=== PATIENT | male | born 1980 | race Caucasian/White ===

== ENCOUNTER 2023-01-18 21:25 | Emergency (ER) | payer MEDICAID, OTHER ==
[~2023-01-18] VITALS: Ht 177.8 cm; Wt 79.2 kg
[2023-01-18 21:25] VITALS: BP 131/76; PULSE 91; RESP 18; TEMP 98.3
[2023-01-18] MEDS ORDERED: IBUP-1456 PO (23:38)
[2023-01-18] MEDS ORDERED: CARB6.5S44 OT (23:38)
[2023-01-18] MEDS ORDERED: AMOX875T4 PO (23:38)
[2023-01-18] MEDS ORDERED: KETOROLAC TROMETH 60MG/2ML VIAL IM ONE (23:45)
[2023-01-18 23:53] VITALS: O2SAT 96
== END 2023-01-19 00:52 | disposition home or self-care (01) ==
LOC: ER 21:25
DX: H61.22 Impacted cerumen, left ear (principal); Z79.1 Long term (current) use of non-steroidal anti-inflammatories (NSAID); Z79.2 Long term (current) use of antibiotics; Z79.899 Other long term (current) drug therapy
CPT/HCPCS: J1885

== ENCOUNTER 2025-02-23 20:03 | Emergency (ER) | payer MEDICAID ==
[~2025-02-23] VITALS: Ht 177.8 cm; Wt 77.2 kg
[~2025-02-23 20:03] MED LIST: AMOX875T4 PO; CARB6.5S44 OT; IBUP-1456 PO
[2025-02-23 20:40] LABS: Hematocrit 47.9 % (41.0-53.0); Hemoglobin 16.4 g/dL (13.5-17.5); Mean Corpuscular Hemoglobin 31.3 pg (28.0-32.0); Mean Corpuscular Volume 91.5 fL (80.0-100.0); Nucleated Red Blood Cells % 0.1 %
--- NOTE | 2025-02-23 20:46 | ED.PDOC ---
GI ASSESSMENT HPI Comments 44-year-old male came to ER for nausea and vomiting. Patient is prediabetic. Admits that he was drinking alcohol heavily last night, started having bouts of nausea and vomiting. Today, he still feels very dizzy, nauseated, blurred vision, and had a couple of near syncopal attacks. Patient tried hydrating himself with Gatorade but symptoms persisted Chief Complaint: Nausea/Vomiting Time Seen by MD: 20:46 Primary Care Provider: UNKNOWN Reviewed Notes: Nurses Notes Allergies: Coded Allergies: NO KNOWN ALLERGIES (Unverified , 08/22/11) Home Meds Active Scripts Ondansetron Odt 4MG Tab (ZOFRAN PO) 4 Mg Tb, 4 MG PO Q6HPRN PRN for 3 Days, #12 TAB ODT TAB-DISSOLVE IN MOUTH, THEN SWALLOW Prov:SHAR VARGAS MD 02/23/25 Carbamide Peroxide (Debrox) 6.5 % Betty, 5 DROP OT BID for 4 Days, #1 BOTTLE 0 Re fills Prov:LOKESH WEINER 01/18/23 Ibuprofen (Ibuprofen) 800 Mg Tab, 1 TAB PO TID PRN, #30 TAB 0 Refills Prov:LOKESH WEINER 01/18/23 Amoxicillin & Pot Clavulanate (Amoxicillin/Potassium Cla) 875 Mg Tab, 1 TAB PO BID for 7 Days, #14 TAB 0 Refills Prov:LOKESH WEINER 01/18/23 Information Source: Patient Mode of Arrival: Ambulatory Past Medical History PAST MEDICAL HISTORY: Denies Surgical History: Denies all surgeries Family History Family History: Unknown Social History Smoker: Non-Smoker Alcohol: Occasionally Drugs: Denies Drug Use Lives In: Home Constitutional: denies: chills, diaphoresis, fatigue, fever, malaise, sweats, weakness, others EENTM: reports: blurred vision; denies: double vision, ear bleeding, ear discharge, ear drainage, ear pain, ear ringing, eye pain, eye redness, hearing loss, mouth pain, mouth swelling, nasal discharge, nose bleeding, nose congestion, nose pain, photophobia, tearing, throat pain, throat swelling, voice changes, others Respiratory: denies: cough, hemoptysis, orthopnea, SOB at rest, shortness of breath, SOB with excertion, stridor, wheezing, others Cardiovascular: denies: chest pain, dizzy spells, diaphoresis, Dyspnea on exertion, edema, irregular heart beat, left arm pain, lightheadedness, palpitations, PND, syncope, others Gastrointestinal: reports: nausea, vomiting; denies: abdomen distended, abdominal pain, blood streaked bowels, constipated, diarrhea, dysphagia, difficulty swallowing, hematemesis, melena, poor appetite, poor fluid intake, rectal bleeding, rectal pain, others Genitourinary: denies: burning, dysuria, flank pain, frequency, hematuria, incontinence, penile discharge, penile sore, pain, testicle pain, testicle swelling, urgency, others Neurological: reports: dizziness, fainting; denies: headache, left sided numbness, left sided weakness, numbness, paresthesia, pre-existing deficit, right sided numbness, right sided weakness, seizure, speech problems, tingling, tremors, weakness, others Musculoskeletal: denies: back pain, gout, joint pain, joint swelling, muscle pain, muscle stiffness, neck pain, others Integumetry: denies: bruises, change in color, change in hair/nails, dryness, laceration, lesions, lumps, rash, wounds, others Allergic/Immunocompromised: denies: Difficulty Healing, Frequent Infections, Hives, Itching, others Hematologic/Lymphatic: denies: anemia, blood clots, easy bleeding, easy bruising, swollen glands, others Endocrine: denies: excessive hunger, excessive sweating, excessive thirst, excessive urination, flushing, intolerance to cold, intolerance to heat, unexplained weight gain, unexplained weight loss, others Psychiatric: denies: anxiety, bipolar disorder, depression, hopeless, panic disorder, schizophrenia, sleepless, suicidal, others Physical Exam General Appearance: No Apparent Distress, Normal HEENT: Normal ENT Inspection, Pharynx Normal, TMs Normal Neck: Full Range of Motion, Non-Tender, Normal, Normal Inspection Respiratory: Chest Non-Tender, Lungs Clear, No Accessory Muscle Use, No Respiratory Distress, Normal Breath Sounds Cardiovascular: No Edema, No JVD, No Murmur, No Gallop, Normal Peripheral Pulses, Regular Rate/Rhythm Breast Exam: Deferred Gastrointestinal: No Organomegaly, Non Tender, No Pulsatile Mass, Normal Bowel Sounds, Soft Genitalia: Deferred Pelvic: Deferred Rectal: Deferred Extremities: No calf tenderness, Normal capillary refill, Normal inspection, Normal range of motion, Non-tender, No pedal edema Musculoskeletal : Apperance: Normal Neurologic: Alert, oven tender II-XII nml as Tested, No Motor Deficits, Normal Affect, Normal Mood, No Sensory Deficits Cerebellar Function: Normal Reflexes: Normal Skin: Dry, Normal Color, Warm Lymphatic: No Adenopathy Was a procedure done? Was a procedure done?: No GI differential Dx Differential Diagnosis: Gastritis/PUD, Gastroenteritis, Pancreatitis, Dehydrati on, Electrolyte Imbalance, Food Poisoning X-Ray, Labs, Meds, VS Vital Signs Date Time Temp Pulse Resp B/P (MAP) Pulse Ox O2 Delivery O2 Flow Rate FiO2 02/23/25 21:05 98.7 77 16 120/89 (99) 96 98.7 02/23/25 20:05 98.9 89 18 142/93 95 98.9 Lab Test 02/23/25 20:26 Range/Units White Blood Count 8.1 4.4-10.8 10^3/uL Red Blood Count 5.24 4.5-5.90 10^6/uL Hemoglobin 16.4 13.5-17.5 g/dL Hematocrit 47.9 41.0-53.0 % Mean Corpuscular Volume 91.5 80.0-100.0 fL Mean Corpuscular Hemoglobin 31.3 28.0-32.0 pg Mean Corpuscular Hemoglobin Concent 34.2 32.0-36.0 g/dL Red Cell Distribution Width 14.0 11.8-14.3 % Platelet Count 272 140-450 10^3/uL Mean Platelet Volume 6.9 6.9-10.8 fL Neutrophils (%) (Auto) 69.1 37.0-80.0 % Lymphocytes (%) (Auto) 24.6 10.0-50.0 % Monocytes (%) (Auto) 5.4 0.0-12.0 % Eosinophils (%) (Auto) 0.4 0.0-7.0 % Basophils (%) (Auto) 0.5 0.0-2.0 % Neutrophils # (Auto) 5.6 1.6-8.6 10 ^3/uL Lymphocytes # (Auto) 2.0 0.4-5.4 10 ^3/uL Monocytes # (Auto) 0.4 0-1.3 10 ^3/uL Eosinophils # (Auto) 0 0-0.8 10 ^3/uL Basophils # (Auto) 0 0-0.2 10 ^3/uL Nucleated Red Blood Cells 0.1 % Sodium Level 139 136-145 mmol/L Potassium Level 4.4 3.5-5.1 mmol/L Chloride Level 102 98-107 mmol/L Carbon Dioxide Level 28 20-31 mmol/L Anion Gap 9 5-15 Blood Urea Nitrogen 17 9-23 mg/dL Creatinine 1.28 0.700-1.30 mg/dL Glomerular Filtration Rate Calc 72 >90 mL/min BUN/Creatinine Ratio 13.3 10.0-20.0 Serum Glucose 116 H 74-106 mg/dL Calcium Level 10.1 8.7-10.4 mg/dL Magnesium Level 2.3 1.6-2.6 mg/dL Total Bilirubin 0.6 0.2-1.0 mg/dL Aspartate Amino Transferase (AST) 24 13-40 U/L Alanine Aminotransferase (ALT) 41 H 7-40 U/L Alkaline Phosphatase 55 46-116 U/L Total Protein 8.0 5.7-8.2 g/dL Albumin 4.9 H 3.2-4.8 g/dL Lipase 38 12-53 U/L Plasma/Serum Blood Alcohol < 3.0 <10 mg/dL Current Medications Medications (Trade) Dose Ordered Sig/Harish Route Start Time Stop Time Status Last Admin Famotidine (Pepcid Tablet) 20 mg ONCE ONCE PO 02/23/25 20:30 02/23/25 20:31 DC 02/23/25 21:17 Sodium Chloride 1,000 ml @ 1,000 mls/hr Q1H ONCE IV 02/23/25 21:15 02/23/25 22:14 02/23/25 21:17 Sodium Chloride 1,000 ml @ 1,000 mls/hr Q1H ONCE IV 02/23/25 21:15 02/23/25 22:14 02/23/25 21:18 Sodium Chloride 1,000 ml @ 1,000 mls/hr Q1H ONCE IV 02/23/25 21:15 02/23/25 22:14 02/23/25 21:18 Time of 1ST Reevaluation: 20:43 Reevaluation 1ST: Unchanged Patient Education/Counseling: Diagnosis, Treatment Family Education/Counseling: No Family Present SEPSIS Sepsis Screen Date sepsis recognized/suspect: Feb 23, 2025 Time Sepsis recognized/suspect: 2008 Recent Procedure: No On Antibiotic Therapy: No Respiratory Rate >20: No Heart Rate >90: No Temp<36 C (96.8 F) or >38.3 C: No SBP <90 or MAP <65 mmHG: No New Acute Mental Status Change: No Is the patient on CPAP, BIPAP,: No Physician Orders Urinalysis (02/23/25 20:16) Drug Screen (02/23/25 20:16) Sodium Chloride 0.9% (02/23/25 21:15) Sodium Chloride 0.9% (02/23/25 21:15) Sodium Chloride 0.9% (02/23/25 21:15) Vital Signs Date Time Temp Pulse Resp B/P (MAP) Pulse Ox O2 Delivery O2 Flow Rate FiO2 02/23/25 21:05 98.7 77 16 120/89 (99) 96 98.7 02/23/25 20:05 98.9 89 18 142/93 95 98.9 Laboratory Tests Test 02/23/25 20:26 White Blood Count 8.1 10^3/uL (4.4-10.8) Medications Medications Dose Ordered Sig/Harish Route Start Time Stop Time Status Last Admin Dose Admin Famotidine 20 mg ONCE ONCE PO 02/23/25 20:30 02/23/25 20:31 DC 02/23/25 21:17 Sodium Chloride 1,000 ml @ 1,000 mls/hr Q1H ONCE IV 02/23/25 21:15 02/23/25 22:14 02/23/25 21:17 Sodium Chloride 1,000 ml @ 1,000 mls/hr Q1H ONCE IV 02/23/25 21:15 02/23/25 22:14 02/23/25 21:18 Sodium Chloride 1,000 ml @ 1,000 mls/hr Q1H ONCE IV 02/23/25 21:15 02/23/25 22:14 02/23/25 21:18 Departure 1 Departure Time of Disposition: 21:15 (44-year-old male with no past medical history who is presenting for feeling unwell after a night of heavy binge drinking and n ausea and vomiting. Given symptoms are all triggered after excessive drinking seems likely consistent with alcoholic gastritis. Given the abdominal pain and vomiting consider possible pancreatitis. Lipase today is within normal limits. Patient reports several episodes of vomiting, however, arrives with normal vitals. CBC with no evidence of critical leukocytosis or significant anemia. Metabolic panel with no evidence of acute electrolyte abnormalities or acute kidney insufficiency. Liver function tests are within normal limits. The patient was given 1 L normal saline IV fluid bolus, ODT Zofran and oral Pepcid. No further episodes of vomiting here. Stable for discharge further outpatient management. Advised to continue with oral rehydration. Will be sent a prescription for Zofran to take as needed.) Impression: Primary Impression: Nausea & vomiting Additional Impressions: Abdominal pain Alcohol poisoning Disposition: HOME / SELF CARE / HOMELESS Condition: Stable e-Prescriptions Ondansetron Odt 4MG Tab (ZOFRAN PO) 4 Mg Tb 4 MG PO Q6HPRN PRN for 3 Days, #12 TAB ODT TAB-DISSOLVE IN MOUTH, THEN SWALLOW Prov: SHAR VARGAS MD 02/23/25 Discharged With: Self Critical Care Note Critical Care Time?: No Stability Stability form required: No Heart Score Heart Score: Heart Score Response (Comments) Value History N/A 0 EKG N/A 0 Age N/A 0 Risk Factors N/A 0 Troponin N/A 0 Total 0 I personally scribed for SHAR VARGAS MD ([email or web address]) on 02/23/25 at 20:46. Nikia ctronically submitted by Roger Hernandez ([facility]). SHAR VARGAS MD Feb 23, 2025 20:46
[2025-02-23 20:59] LABS: Alkaline Phosphatase 55 U/L (46-116); Anion Gap 9 (5-15); BUN/Creatinine Ratio 13.3 (10.0-20.0); Blood Urea Nitrogen 17 mg/dL (9-23); Calcium 10.1 mg/dL (8.7-10.4); Carbon Dioxide 28 mmol/L (20-31); Chloride 102 mmol/L (98-107); Magnesium 2.3 mg/dL (1.6-2.6); Potassium 4.4 mmol/L (3.5-5.1); Sodium 139 mmol/L (136-145); Total Protein 8.0 g/dL (5.7-8.2)
[2025-02-23 21:00] LABS: Bilirubin, Total 0.6 mg/dL (0.2-1.0)
[2025-02-23 21:05] VITALS: BP 120/89; PULSE 77; RESP 16; TEMP 98.7
[2025-02-23] MEDS: FAMOTIDINE 20 MG TAB PO ONE (21:17)
[2025-02-23] MEDS ORDERED: ZOFR4T PO (21:17)
[2025-02-23] MEDS: SODIUM CHLORIDE 0.9% 1,000 ML IV ONE ×3 (21:17→21:18)
[2025-02-23] MEDS: ONDANSETRON ODT 4 MG TAB PO ONE (21:17)
[2025-02-23 21:19] LABS: Alanine Aminotransferase 41 U/L (7-40); Albumin 4.9 g/dL (3.2-4.8); Glucose 116 mg/dL (74-106)
[2025-02-23 21:36] LABS: Lipase 38 U/L (12-53)
[2025-02-23 22:31] VITALS: O2SAT 99
== END 2025-02-23 22:22 | disposition home or self-care (01) ==
LOC: ER 20:03
DX: T51.0X1A Toxic effect of ethanol, accidental (unintentional), initial encounter (principal); R10.9 Unspecified abdominal pain; R11.2 Nausea with vomiting, unspecified; Z79.899 Other long term (current) drug therapy; Y92.89 Other specified places as the place of occurrence of the external cause
CPT/HCPCS: 36415; 80053; 80320; 83690; 83735; 85025; 96360; 99283; J7030; Q0162